=== PATIENT | female | born 1960 | race Caucasian/White ===

== ENCOUNTER 2018-09-06 12:45 | Outpatient (AMBR) | payer MEDICAID, SELFPAY ==
--- NOTE | 2018-09-06 14:12 | PT.ODAYNRPT ---
PT Outpatient Daily Note Date of Service: September 06, 2018 OP Daily Note Visit Reasons: knee pain Outpatient Physical Therapy Treatment Date: 09/06/18 Subjective: pt likes to warm up her knee prior to ther ex. pt states knee flexion is very limited due to pain. Objective: see flow sheet. Assessment: added new exercises for WB and weight shifting onto the LLE as she tends to be very guarded. pt was not flexiing her knee not even to take a step to the side. pt was dragging her L foot and hyperextending it. cued pt to step each time with knee flexion but pt c/o pain. barely any knee flexion during heel slides due to pain. pt was able to step onto the stair case but very very slow motion as she avoids pain. Plan: continue POC per PT. Length of Time (minutes) of Treatment: 30 Minutes Office Procedures PT Procedures PT Date of Service: 09/06/18 Therapeutic Exercise 30 minutes: Yes
== END 2018-10-06 23:59 | disposition home or self-care (01) ==
PROVIDERS: PCP Family Medicine; Referring Provider Family Medicine; Visit Provider Orthopaedic Surgery
DX: M25.562 Pain in left knee (principal)
CPT/HCPCS: 97110

== ENCOUNTER 2024-12-09 08:42 | Emergency (ER) | payer MEDICAID, SELFPAY ==
[2024-12-09 08:49] VITALS: BP 150/89; PULSE 71; RESP 20; TEMP 36.4; O2SAT 100
[2024-12-09 08:58] VITALS: BP 164/88; PULSE 71; RESP 20; TEMP 36.4; O2SAT 100
[2024-12-09 08:59] VITALS: PULSE 76; RESP 22; O2SAT 99; BMI 23.8
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
[2024-12-09] MEDS: ACETAMINOPHEN 325 MG TABLET 650 MG PO (09:43)
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
[2024-12-09 09:57] VITALS: BP 135/79; PULSE 58; RESP 15; TEMP 36.7; O2SAT 98
[2024-12-09 10:33] LABS: Basophils % (Auto) 1 % (0-2.5); Eosinophils # (Auto) 0.1 Thou/mm3 (0.0-0.5); Eosinophils % (Auto) 3 % (0-10); Hematocrit 38.8 % (36.0-46.0); Hemoglobin 13.5 g/dL (12.0-16.0); Immature Granulocytes % (Auto) 0 % (0-0); Immature Granulocytes Auto 0.01 Thou/mm3 (0.00-0.00); Lymphocytes # (Auto) 1.6 Thou/mm3 (1.0-4.8); Lymphocytes % (Auto) 32 % (10-50); Mean Corpuscular HGB Conc 34.8 g/dl (31.0-37.0); Mean Corpuscular Hemoglobin 32.4 pg (25.0-35.0); Mean Corpuscular Volume 93 fL (80-100); Monocytes # (Auto) 0.2 Thou/mm3 (0.0-0.8); Monocytes % (Auto) 4 % (0-12); Neutrophils % (Auto) 60 % (37-80); Nucleated Red Blood Cell % 0 /100 WBC (0); Platelet Count 194 Thou/mm3 (140-440); RDW Standard Deviation 43.5 fL (36.4-46.3); Red Blood Count 4.17 Miln/mm3 (4.00-5.20); White Blood Count 5.1 Thou/mm3 (3.6-11.0)
[2024-12-09 10:59] LABS: Alanine Aminotransferase 16 U/L (10-49); Albumin, Serum 4.6 gm/dL (3.4-4.8); Albumin/Globulin Ratio 2.2 (1.2-2.2); Alkaline Phosphatase 114 U/L (46-116); Anion Gap 10 (7-16); Aspartate Amino Transferase 20 U/L (0-34); BUN/Creatinine Ratio 18 Ratio (12-20); Bilirubin,Total 0.7 mg/dL (0.3-1.2); Blood Urea Nitrogen 11 mg/dL (9-23); Calcium 9.6 mg/dL (8.3-10.6); Calcium (Corrected) 9.6 mg/dL (8.5-10.1); Carbon Dioxide 25.9 mMol/L (20.0-31.0); Chloride 103 mMol/L (98-107); Creatinine (Component) 0.6 mg/dL (0.6-1.3); Globulin 2.1 gm/dL (2.3-3.5); Glucose 99 mg/dL (74-106); Osmolality,Calculated 276 (275-295); Potassium 3.7 mMol/L (3.4-5.1); Sodium 139 mMol/L (136-145); Total Protein 6.7 gm/dL (5.7-8.2); eGFR > 60 See Note
[2024-12-09 12:58] VITALS: BP 133/69; PULSE 57; RESP 15; TEMP 36.5; O2SAT 100
== END 2024-12-09 13:40 | disposition home or self-care (01) ==
PROVIDERS: Emergency Provider Emergency Medicine; PCP Physician Assistant Medical
DX: S70.212A Abrasion, left hip, initial encounter (principal); S09.90XA Unspecified injury of head, initial encounter; S19.9XXA Unspecified injury of neck, initial encounter; S29.9XXA Unspecified injury of thorax, initial encounter; S39.91XA Unspecified injury of abdomen, initial encounter; V89.9XXA Person injured in unspecified vehicle accident, initial encounter
CPT/HCPCS: 36415; 70450; 71260; 72125; 74177; 80053; 85025; 99285; A4649; Q9967; A9270